=== PATIENT | female | born 1970 | race Caucasian/White ===

== ENCOUNTER 2019-04-15 00:50 | Emergency (ER) | payer MEDICAID, OTHER ==
[~2019-04-15] VITALS: Ht 157.5 cm; Wt 59.0 kg
[2019-04-15 01:35] VITALS: BP 143/82
[2019-04-15] MEDS ORDERED: DICL50TA4 PO (02:11)
[2019-04-15] MEDS ORDERED: ORPH100T PO (02:11)
--- NOTE | 2019-04-15 02:11 | PHYS DOC ---
Past Medical History Past Medical History: Arthritis Past Surgical History: Other Additional Past Surgical Histo: shoulder Alcohol Use: None Drug Use: Methamphetamine Adult General Chief Complaint Chief Complaint: BACK PAIN OR INJURY [facility] HPI Patient is a 48-year-old female who presents with complaint of midthoracic back pain that she states started about 5 hours ago. EMS that brought her in with report that she had fallen, injuring her back. When I asked patient if she had injured her back, she states that she has not had any recent injuries but her back just hurts. She rates pain as moderate and states that pain is getting worse with time. She denies any loss of bowel or bladder control. She describes pain as sharp in nature and states it is worse when she takes in a deep breath.[] Review of Systems Review of Systems Constitutional: Denies fever or chills [] Respiratory: Denies cough or shortness of breath [] Cardiovascular: No additional information not addressed in HPI [] GI: Denies abdominal pain, nausea, vomiting, bloody stools or diarrhea [] Musculoskeletal: Complains of midthoracic back pain [] Integument: Denies rash or skin lesions [] Neurologic: Denies headache, focal weakness or sensory changes [] Allergies Allergies Allergies Coded Allergies Type Severity Reaction Last Updated Verified No Known Drug Allergies 06/23/15 No Physical Exam Physical Exam Constitutional: Well developed, well nourished, no acute distress, non-toxic appearance. [] Cardiovascular:Heart rate regular rhythm, no murmur [] Lungs & Thorax: Bilateral breath sounds clear to auscultation [] Skin: Warm, dry, no erythema, no rash. [] Back: Examination of back demonstrates tenderness to palpation around T7-T9 bilaterally. There is no palpable spasm noted. [] Extremities: No tenderness, no cyanosis, no clubbing, ROM intact. [] Neurologic: Alert and oriented X 3, no focal deficits noted. [] Current Patient Data Vital Signs Vital Signs Date Time Temp Pulse Resp B/P (MAP) Pulse Ox O2 Delivery O2 Flow Rate FiO2 04/15/19 01:35 97.8 94 14 143/82 (102) 99 Room Air 97.8 EKG EKG [] Radiology/Procedures Radiology/Procedures [] Course & Med Decision Making Course & Med Decision Making Pertinent Labs and Imaging studies reviewed. (See chart for details) [] Dragon Disclaimer Dragon Disclaimer This electronic medical record was generated, in whole or in part, using a voice recognition dictation system. Departure Departure Impression: Primary Impression: Mid back pain Disposition: 01 HOME, SELF-CARE Condition: STABLE Referrals: NO PCP (PCP) Patient Instructions: Back Pain, Adult Scripts Orphenadrine Citrate (ORPHENADRINE CITRATE) 100 Mg Tablet.er 1 TAB PO BID PRN for MUSCLE SPASMS, #14 TAB Prov: CHAD GÓMEZ Jr. DO 04/15/19 Diclofenac Sodium (DICLOFENAC SODIUM) 50 Mg Tablet.dr 1 TAB PO BID PRN for PAIN, #20 TAB Prov: CHAD GÓMEZ Jr. DO 04/15/19 CHAD GÓMEZ Jr. DO Apr 15, 2019 02:11
[2019-04-15] MEDS ORDERED: DEXAMETHASONE SOD PHOS 20 MG/5 ML VIAL. IM ONE (02:30)
[2019-04-15] MEDS ORDERED: KETOROLAC 60 MG/2 ML VIAL. IM ONE (02:30)
== END 2019-04-15 02:27 | disposition home or self-care (01) ==
LOC: ER 00:50
DX: M54.6 Pain in thoracic spine (principal); G89.11 Acute pain due to trauma; W18.39XA Other fall on same level, initial encounter; Y93.89 Activity, other specified; Y92.89 Other specified places as the place of occurrence of the external cause; Y99.8 Other external cause status
CPT/HCPCS: 96372; 99284; J1100; J1885